=== PATIENT | male | born 1955 | race Hispanic/Latino ===

== ENCOUNTER 2018-08-05 08:32 | Emergency (ER) | payer OTHER | END 2018-08-05 10:11 | disposition home or self-care (01) | LOC: EDH 08:32 | DX: M13.80 Other specified arthritis, unspecified site (principal); Z87.891 Personal history of nicotine dependence | CPT/HCPCS: 73130 ==

== ENCOUNTER 2020-01-05 11:15 | Inpatient (IN) | payer OTHER ==
[~2020-01-05] VITALS: Ht 167.6 cm; Wt 108.9 kg
[2020-01-05 12:10] LABS: BASOPHILS % (AUTO) 0.8 % (0.0-5.0); EOSINOPHILS % (AUTO) 2.4 % (0.0-8.0); LYMPHOCYTES % (AUTO) 7.8 % (21.0-51.0); MEAN CORPUSCULAR HEMOGLOBIN 20.8 pg (27.0-33.0); MEAN CORPUSCULAR HGB CONC 26.6 g/dL (32.0-36.0); MEAN CORPUSCULAR VOLUME 78.1 fL (79-99); MONOCYTES % (AUTO) 6.6 % (3.0-13.0); NEUTROPHILS % (AUTO) 80.6 % (40.0-77.0); NUCLEATED RED BLOOD CELLS 1.8 % (0.0-0.19); PLATELET COUNT (AUTO) 349 K/uL (130-400); RED BLOOD CELL COUNT(AUTO) 2.65 MIL/uL (4.50-6.20); RED CELL DISTRIBUTION WIDTH 21.3 % (11.0-15.5)
[2020-01-05 12:12] LABS: HEMATOCRIT 20.7 % (42-54)
[2020-01-05 12:17] LABS: CREATININE 1.3 mg/dL (0.5-1.5); POTASSIUM 3.9 mmol/L (3.5-5.1)
[2020-01-05 12:19] LABS: ALBUMIN 3.7 g/dL (3.5-5.0); BILIRUBIN,DIRECT 0.1 mg/dL (0.0-0.3); BILIRUBIN,TOTAL 0.6 mg/dL (0.2-1.0); TOTAL PROTEIN, SERUM 7.2 g/dL (6.0-8.3)
[2020-01-05 13:11] LABS: INR 0.93 (0.85-1.15); PARTIAL THROMBOPLASTIN TIME 20.6 SEC (26.3-35.5); PROTHROMBIN TIME 10.1 SEC (9.6-11.6)
[2020-01-05] MEDS ORDERED: SODIUM CHLORIDE 0.9% 1000ML 1,000 ML IV SCH (15:49)
[2020-01-05] MEDS ORDERED: MORPHINE SULFATE 2 MG/ML 1ML SYG IV PRN (16:00)
[2020-01-05] MEDS ORDERED: ONDANSETRON HCL 4 MG/2 ML VIAL IV PRN (16:00)
[2020-01-05] MEDS ORDERED: ACETAMINOPHEN 325 MG TAB PO PRN ×2 (16:00)
[2020-01-05] MEDS: CEFTRIAXONE SODIUM 1 GM IV SCH (16:00)
[2020-01-05 16:25] LABS: RETICULOCYTE % (AUTO) 9.24 % (0.42-2.23)
[2020-01-05 16:33] LABS: % IRON SATURATION 2.9 % (30-44)
[2020-01-05] MEDS ORDERED: CEFTRIAXONE SODIUM 1 GM ONE (17:35)
[2020-01-05] MEDS ORDERED: SODIUM CHLORIDE 0.9% 50 ML IV ONE (17:36)
[2020-01-05] MEDS ORDERED: SODIUM CHLORIDE 0.9% 1000ML 1,000 ML IV ONE (17:36)
[2020-01-05 19:00] VITALS: BP 124/77
[2020-01-05] MEDS: FAMOTIDINE/PF 20 MG/2 ML VIAL IV SCH (21:08)
[2020-01-05 23:00] VITALS: BP 104/71
[2020-01-06 03:00] VITALS: BP 107/61
[2020-01-06] MEDS: CEFTRIAXONE SODIUM 1 GM IV SCH ×2 (03:28→19:50)
[2020-01-06 04:28] LABS: BASOPHILS % (AUTO) 0.9 % (0.0-5.0); HEMATOCRIT 21.2 % (42-54); LYMPHOCYTES % (AUTO) 12.6 % (21.0-51.0); MEAN CORPUSCULAR HEMOGLOBIN 22.6 pg (27.0-33.0); MEAN CORPUSCULAR HGB CONC 28.3 g/dL (32.0-36.0); MEAN CORPUSCULAR VOLUME 79.7 fL (79-99); MONOCYTES % (AUTO) 7.3 % (3.0-13.0); NEUTROPHILS % (AUTO) 71.9 % (40.0-77.0); NUCLEATED RED BLOOD CELLS 0.8 % (0.0-0.19); PLATELET COUNT (AUTO) 285 K/uL (130-400); RED BLOOD CELL COUNT(AUTO) 2.66 MIL/uL (4.50-6.20); RED CELL DISTRIBUTION WIDTH 20.9 % (11.0-15.5); WHITE BLOOD COUNT (AUTO) 8.7 K/uL (4.8-10.8)
[2020-01-06 04:44] LABS: ALBUMIN 2.9 g/dL (3.5-5.0); BILIRUBIN,TOTAL 0.6 mg/dL (0.2-1.0); CREATININE 1.1 mg/dL (0.5-1.5); POTASSIUM 3.9 mmol/L (3.5-5.1); TOTAL PROTEIN, SERUM 6.2 g/dL (6.0-8.3)
--- NOTE | 2020-01-06 06:00 | NUR ---
Paged Dr. White to report H/H 6.0/21.2, pending call back.
[2020-01-06 08:00] VITALS: BP 116/65
[2020-01-06] MEDS: FAMOTIDINE/PF 20 MG/2 ML VIAL IV SCH ×2 (10:24→19:50)
--- NOTE | 2020-01-06 10:54 | NUR ---
INITIAL SW spoke with patient. Patient states he lives with his , Lilia Carroll, [phone]. No home services or DME. 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 Patient states he does not have insurance information because it's in his wallet and he gave his wallet to his . He states he is able to complete ADL"s independently and drives. PCP is Dr. Collin Morales. Pharmacy is [facility] located in [place]. DCP is home. Addendum: 01/06/20 at 1057 by AJAY FERRARI SS Amended: Links added.
[2020-01-06 11:48] VITALS: BP 126/65
--- NOTE | 2020-01-06 12:45 | NUR ---
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 UPDATE , ASSESSMENT AND ADMISSION DIAGNOSIS . PROCESS WITH THE ONE UNIT OF BLOOD . AND IF NO ACTIVE BLEEDING PT CAN BE SEEN A OUTPATIENT . CARE . FOLLOWUP
[2020-01-06] MEDS ORDERED: COMPOUND IV MISC 1 EACH IVSOLN MISC PRN (14:00)
[2020-01-06] MEDS ORDERED: FERROUS SULFATE 325 MG TABLET.DR PO SCH (14:00)
[2020-01-06] MEDS: IRON SUCROSE COMPLEX 100 MG in SODIUM CHLORIDE 0.9% 50 ML IV SCH (14:39)
[2020-01-06 16:00] VITALS: BP 134/70
--- NOTE | 2020-01-06 17:05 | NUR ---
BLOOD TRANSFUSION COMPLETED FOR A HGB OF 6.0 . TOLERATE WELL WITH NO REACTION NOTED. SEE TRANSFUS;ION FLOW SHEET FOR V/S . WITH A CHECK UP LABS TO FOLLOW.
[2020-01-06 19:00] VITALS: BP 129/56
[2020-01-06 23:00] VITALS: BP 108/67
[2020-01-07 03:00] VITALS: BP 110/56
[2020-01-07 05:30] LABS: BASOPHILS % (AUTO) 0.9 % (0.0-5.0); EOSINOPHILS % (AUTO) 3.8 % (0.0-8.0); HEMATOCRIT 25.2 % (42-54); LYMPHOCYTES % (AUTO) 10.4 % (21.0-51.0); MEAN CORPUSCULAR HEMOGLOBIN 22.7 pg (27.0-33.0); MEAN CORPUSCULAR HGB CONC 28.2 g/dL (32.0-36.0); MEAN CORPUSCULAR VOLUME 80.5 fL (79-99); MONOCYTES % (AUTO) 7.6 % (3.0-13.0); NEUTROPHILS % (AUTO) 76.6 % (40.0-77.0); NUCLEATED RED BLOOD CELLS 0.4 % (0.0-0.19); PLATELET COUNT (AUTO) 295 K/uL (130-400); RED BLOOD CELL COUNT(AUTO) 3.13 MIL/uL (4.50-6.20); RED CELL DISTRIBUTION WIDTH 21.2 % (11.0-15.5); WHITE BLOOD COUNT (AUTO) 9.4 K/uL (4.8-10.8)
[2020-01-07 06:00] LABS: POTASSIUM 4.1 mmol/L (3.5-5.1)
[2020-01-07] MEDS: CEFTRIAXONE SODIUM 1 GM IV SCH ×2 (06:58→18:21)
[2020-01-07 07:30] VITALS: BP 116/53
[2020-01-07] MEDS: FERROUS SULFATE 325 MG TABLET.DR PO SCH ×2 (09:00→14:00)
[2020-01-07 11:00] VITALS: BP 113/58
[2020-01-07] MEDS: IRON SUCROSE COMPLEX 100 MG in SODIUM CHLORIDE 0.9% 50 ML IV SCH (11:41)
[2020-01-07] MEDS: FAMOTIDINE/PF 20 MG/2 ML VIAL IV SCH ×2 (11:41→20:27)
--- NOTE | 2020-01-07 14:10 | NUR ---
`BLOOD TRANSFUSION COMPLETED WITH NO REACTION NOTED. SEE TRANSFUSION FLOW SHEET FOR V/S
[2020-01-07 16:00] VITALS: BP 121/68
[2020-01-07 18:00] LABS: HEMATOCRIT 28.3 % (42-54); MEAN CORPUSCULAR HEMOGLOBIN 22.9 pg (27.0-33.0); MEAN CORPUSCULAR HGB CONC 28.3 g/dL (32.0-36.0); MEAN CORPUSCULAR VOLUME 80.9 fL (79-99); NUCLEATED RED BLOOD CELLS 0.8 % (0.0-0.19); PLATELET COUNT (AUTO) 265 K/uL (130-400); RED CELL DISTRIBUTION WIDTH 21.2 % (11.0-15.5); WHITE BLOOD COUNT (AUTO) 8.6 K/uL (4.8-10.8)
[2020-01-07 19:42] VITALS: BP 138/69
[2020-01-07 23:31] VITALS: BP 114/63
[2020-01-08 04:05] VITALS: BP 104/64
[2020-01-08] MEDS: CEFTRIAXONE SODIUM 1 GM IV SCH ×2 (04:48→16:00)
[2020-01-08 05:28] LABS: BASOPHILS % (AUTO) 1.2 % (0.0-5.0); EOSINOPHILS % (AUTO) 5.4 % (0.0-8.0); HEMATOCRIT 29.3 % (42-54); LYMPHOCYTES % (AUTO) 13.4 % (21.0-51.0); MEAN CORPUSCULAR HEMOGLOBIN 23.1 pg (27.0-33.0); MEAN CORPUSCULAR HGB CONC 28.3 g/dL (32.0-36.0); MEAN CORPUSCULAR VOLUME 81.6 fL (79-99); MONOCYTES % (AUTO) 7.2 % (3.0-13.0); NEUTROPHILS % (AUTO) 72.3 % (40.0-77.0); NUCLEATED RED BLOOD CELLS 0.5 % (0.0-0.19); PLATELET COUNT (AUTO) 284 K/uL (130-400); RED BLOOD CELL COUNT(AUTO) 3.59 MIL/uL (4.50-6.20); RED CELL DISTRIBUTION WIDTH 21.1 % (11.0-15.5); WHITE BLOOD COUNT (AUTO) 8.2 K/uL (4.8-10.8)
[2020-01-08 05:38] LABS: POTASSIUM 3.5 mmol/L (3.5-5.1)
[2020-01-08 07:30] VITALS: BP 110/62
[2020-01-08] MEDS: FAMOTIDINE/PF 20 MG/2 ML VIAL IV SCH (07:54)
[2020-01-08] MEDS ORDERED: IRON SUCROSE COMPLEX 100 MG in SODIUM CHLORIDE 0.9% 50 ML IV SCH ×4 (09:00)
[2020-01-08 11:00] VITALS: BP 126/59
[2020-01-08] MEDS ORDERED: FERR325T22 PO (12:09)
[2020-01-08] MEDS ORDERED: EPOETIN ALFA 10,000 UNIT/ML VIAL SQ SCH (12:15)
[2020-01-08] MEDS ORDERED: MECO10005 PO (12:34)
[2020-01-08] MEDS ORDERED: FOLI0.8T PO (12:34)
[2020-01-08 16:00] VITALS: BP 123/70
--- NOTE | 2020-01-08 18:30 | NUR ---
DISCHARGE SUMMARY WAS REVIEW.WITH. PT OF FOLLOWUP CARE AND WITH GI DR MALDONADO FOR WORKUP. ASSESSMENT .FOR HIS LOW HGB , PT HAS CHRONIC ANEMIA STATED . CHART REPORTS WERE FAX TO DR. MOHR ORDER. SL TO HIS LT HAND WAS DC , WITH NO HEMATAMA NOTED . OR REDNESS . SM PRESSURE DRSG APPLICATION ON.
== END 2020-01-08 18:30 | disposition home or self-care (01) | DRG 379 ==
LOC: EDH 11:15 → EDHIP 16:23 → 3DH 18:30
PROVIDERS: ADMIT Internal Medicine; ATTEND Internal Medicine
PROC: 30233N1 Transfusion of Nonautologous Red Blood Cells into Peripheral Vein, Percutaneous Approach (ICD-10-PCS; principal; 2020-01-05)
DX: K92.2 Gastrointestinal hemorrhage, unspecified (principal); D64.9 Anemia, unspecified; E66.9 Obesity, unspecified; M19.90 Unspecified osteoarthritis, unspecified site; D72.829 Elevated white blood cell count, unspecified; R53.82 Chronic fatigue, unspecified; Z68.38 Body mass index [BMI] 38.0-38.9, adult; Z87.891 Personal history of nicotine dependence
CPT/HCPCS: 36415; 36430; 80048; 80053; 80076; 82270; 82550; 83540; 83550; 85025; 85027; 85045; 85610; 85651; 85730; 86850; 86900; 86901; 86922; 93005; G0378; J0696; J0885; J1756; J3490; J7030; P9016